=== PATIENT | male | born 1970 | race Caucasian/White ===

== ENCOUNTER 2018-06-13 08:58 | Inpatient (IN) | payer MEDICAID ==
[~2018-06-13] VITALS: Ht 177.8 cm; Wt 77.3 kg
[2018-06-13] MEDS ORDERED: ketorolac trometh. 30mg/ml inj. IV ONE (09:05)
[2018-06-13] MEDS ORDERED: normal saline 1000ML IV soln IVB ONE (09:05)
[2018-06-13 09:42] LABS: BASOPHILS # (AUTO) 0.1 X10'3 (0-0.2); BASOPHILS % (AUTO) 0.8 % (0-1); EOSINOPHILS # (AUTO) 0.1 X10'3 (0-0.9); EOSINOPHILS % (AUTO) 1.8 % (0-6); HEMATOCRIT 37.4 % (42.0-52.0); HEMOGLOBIN 11.8 g/dl (14.0-17.9); LYMPHOCYTES # (AUTO) 1.3 X10'3 (1.1-4.8); LYMPHOCYTES % (AUTO) 21.4 % (21-51); MEAN CORPUSCULAR HEMOGLOBIN 25.1 PG (27.0-31.0); MEAN CORPUSCULAR HGB CONC 31.6 g/dL (33.0-36.5); MEAN CORPUSCULAR VOLUME 79.5 FL (78-98); MEAN PLATELET VOLUME 8.1 FL (7.4-10.4); MONOCYTES # (AUTO) 0.4 X10'3 (0-0.9); MONOCYTES % (AUTO) 6.9 % (2-12); NEUTROPHILS # (AUTO) 4.4 X10'3 (1.8-7.7); NEUTROPHILS % (AUTO) 69.1 % (42-75); PLATELET COUNT 272 X10'3 (140-440); RED BLOOD COUNT 4.71 X10'6 (4.70-6.10); RED CELL DISTRIBUTION WIDTH 18.4 % (11.5-14.5); WHITE BLOOD COUNT 6.3 X10'3 (4.5-11.0)
[2018-06-13 09:51] LABS: ALANINE AMINOTRANSFERASE 32 U/L (12-78); ALBUMIN 3.5 G/DL (3.4-5.0); ALKALINE PHOSPHATASE 60 IU/L (46-116); ANION GAP 12 (8-16); ASPARTATE AMINO TRANSFERASE 28 U/L (10-37); BILIRUBIN,TOTAL 0.4 MG/DL (0.1-1.0); BLOOD UREA NITROGEN 18 MG/DL (7-18); BUN/CREATININE RATIO 17.6 (5.4-32.0); CALCIUM 8.2 MG/DL (8.5-10.1); CHLORIDE 104 MMOL/L (99-107); CREATININE 1.02 MG/DL (0.60-1.10); GLUCOSE 94 MG/DL (70-104); LIPASE 627 U/L (73-393); SODIUM 139 MMOL/L (135-145); TOTAL CARBON DIOXIDE 22.8 MMOL/L (24-32); TOTAL PROTEIN 6.9 G/DL (6.4-8.2); eGFR 78 ML/MIN
--- NOTE | 2018-06-13 12:02 | NUR ---
STILL TRYING TO REACH DR. NAYAK- HIS LINE IS "BUSY" AND STATES TO "CALL AGAIN LATER"
--- NOTE | 2018-06-13 12:17 | NUR ---
CALL PLACED TO DR. LIPSCOMB- PHONE LINE APPEARS TO BE DOWN. TRYING TO OBTAIN PERSONAL CELL PHONE NUMBERS
--- NOTE | 2018-06-13 12:20 | NUR ---
Obtained Dr. Webb's cell phone number and left message.
[2018-06-13 12:22] LABS: GLUCOSE, URINE NEGATIVE (Neg); KETONES,URINE NEGATIVE (Neg); LEUKOCYTE ESTERASE ,URINE SMALL (Neg); NITRITES, URINE NEGATIVE (Neg); OCCULT BLOOD,URINE LARGE (Neg); PH,URINE 5.5 (4.8-8.0); PROTEIN,URINE 100 mg/dl (Neg); UROBILINOGEN,URINE 0.2 E.U/dL (0.2-1.0)
--- NOTE | 2018-06-13 12:23 | NUR ---
[phone] [phone]
[2018-06-13 12:29] LABS: UA COLLECTION TYPE URINAL
[2018-06-13 12:30] LABS: CLARITY,URINE CLOUDY (Clear); COLOR,URINE AMBER (Yellow)
[2018-06-13 12:33] LABS: BACTERIA,URINE FEW /HPF (Neg); MUCUS STRANDS FEW /LPF (Neg); RBC,URINE 50-100 /HPF (0-2); SQUAMOUS EPITHELIAL CELL,UR FEW /LPF (FEW)
[2018-06-13] MEDS ORDERED: levoFLOXACIN-Levaquin 500mg/D5 100 ML IV ONE (13:00)
[2018-06-13] MEDS ORDERED: NO HOME MEDS (13:04)
[2018-06-13] MEDS ORDERED: magnesium hydroxide 30ml (MOM) UD suspension PO PRN (14:25)
[2018-06-13] MEDS ORDERED: acetaminophen 325mg tablet PO PRN (14:25)
[2018-06-13] MEDS ORDERED: mag hydrox/Alum hydrox/simeth 30ml oral suspension PO PRN (14:25)
[2018-06-13] MEDS ORDERED: magnesium Cl slow-release 64mg tablet PO PRN (14:25)
[2018-06-13] MEDS ORDERED: potassium Cl 20 mEq SR tablet PO PRN ×2 (14:25)
[2018-06-13] MEDS ORDERED: ondansetron/PF 4mg/2ml inj IV PRN (14:25)
[2018-06-13] MEDS ORDERED: magnesium 4gm in 100ml NS 100 ML IV PRN (14:25)
[2018-06-13] MEDS ORDERED: potassium Cl 40MEQ/NS 500ml 500 ML IV PRN ×2 (14:25)
[2018-06-13] MEDS ORDERED: magnesium 2GM in 50ml NS 50 ML IV PRN (14:25)
[2018-06-13] MEDS: normal saline 1000ml 1,000 ML IV SCH (14:46)
--- NOTE | 2018-06-13 17:23 | NUR ---
attempted to give report, rhiannon ochoa was busy will call back
[2018-06-13 18:06] VITALS: BP 129/80
[2018-06-13] MEDS: HYDROmorphone inj. 0.5 MG/0.5 ML DISP.SYRIN IV PRN (18:21)
[2018-06-13 19:00] VITALS: BP 127/66
[2018-06-14] VITALS: BP 134/75
[2018-06-14] MEDS: normal saline 1000ml 1,000 ML IV SCH (00:22)
[2018-06-14 06:13] LABS: ALANINE AMINOTRANSFERASE 31 U/L (12-78); ALBUMIN 3.1 G/DL (3.4-5.0); ALKALINE PHOSPHATASE 53 IU/L (46-116); ANION GAP 10 (8-16); ASPARTATE AMINO TRANSFERASE 29 U/L (10-37); BILIRUBIN,TOTAL 1.2 MG/DL (0.1-1.0); BLOOD UREA NITROGEN 14 MG/DL (7-18); BUN/CREATININE RATIO 15.4 (5.4-32.0); CHLORIDE 107 MMOL/L (99-107); CREATININE 0.91 MG/DL (0.60-1.10); GLUCOSE 96 MG/DL (70-104); MAGNESIUM 1.6 MG/DL (1.5-2.4); POTASSIUM 3.8 MMOL/L (3.5-5.1); SODIUM 139 MMOL/L (135-145); TOTAL CARBON DIOXIDE 21.6 MMOL/L (24-32); TOTAL PROTEIN 6.1 G/DL (6.4-8.2); eGFR 89 ML/MIN
[2018-06-14 06:30] LABS: BASOPHILS % (AUTO) 0.7 % (0-1); EOSINOPHILS # (AUTO) 0.1 X10'3 (0-0.9); EOSINOPHILS % (AUTO) 1.9 % (0-6); HEMATOCRIT 36.5 % (42.0-52.0); HEMOGLOBIN 11.7 g/dl (14.0-17.9); LYMPHOCYTES # (AUTO) 1.1 X10'3 (1.1-4.8); MEAN CORPUSCULAR HEMOGLOBIN 25.4 PG (27.0-31.0); MEAN CORPUSCULAR HGB CONC 32.1 g/dL (33.0-36.5); MEAN CORPUSCULAR VOLUME 79.2 FL (78-98); MEAN PLATELET VOLUME 8.6 FL (7.4-10.4); MONOCYTES # (AUTO) 0.5 X10'3 (0-0.9); MONOCYTES % (AUTO) 7.6 % (2-12); NEUTROPHILS % (AUTO) 73.8 % (42-75); PLATELET COUNT 267 X10'3 (140-440); RED BLOOD COUNT 4.61 X10'6 (4.70-6.10); RED CELL DISTRIBUTION WIDTH 18.2 % (11.5-14.5); WHITE BLOOD COUNT 6.7 X10'3 (4.5-11.0)
--- NOTE | 2018-06-14 06:47 | NUR ---
Problems reprioritized. Patient report given, questions answered & plan of care reviewed with Alexandra GABRIEL. Patient in shower.
--- NOTE | 2018-06-14 06:48 | NUR ---
Patient in room [facility]. I have received report from Debora Spain and had the opportunity to ask questions and assume patient care.
[2018-06-14 07:00] VITALS: BP 114/75
[2018-06-14] MEDS ORDERED: CefTRIAXone/D5W-Rocephin 1gm 50 ML IV SCH (08:00)
[2018-06-14] MEDS ORDERED: K and/or MAG REPLACEMENT MC SCH (08:00)
--- NOTE | 2018-06-14 12:40 | NUR ---
Pt c/o hunger and becoming agitated at NPO status. Pt stated he has an appt w/ [facility] on 06/25 but was so painful w/ bloody uo 06/13 that he came to ER. Pt is upset that urologist consult has not happened yet. Call placed to Dr. Webb who returned my call. He reviewed Creatinine level (0.91), WBC (6.7), pain level (last pain med 06/13), and urine appearance (clear pale kwesi). Dr Webb stated pt to call his office this week for f/u appt, d/t no surgery is needed at this time. Dr Lau notified. Regular diet order placed.
[2018-06-14] MEDS: HYDROmorphone inj. 0.5 MG/0.5 ML DISP.SYRIN IV PRN (12:53)
[2018-06-14] MEDS ORDERED: CEPH250T PO (14:32)
== END 2018-06-14 14:56 | disposition home or self-care (01) | DRG 463 ==
LOC: ER 08:59 → ED HOLD 14:22 → SUR 3N 17:46
PROVIDERS: ADMIT Internal Medicine; ATTEND Family Medicine
DX: N13.6 Pyonephrosis (principal); F12.90 Cannabis use, unspecified, uncomplicated; F17.210 Nicotine dependence, cigarettes, uncomplicated; R31.0 Gross hematuria; Z87.442 Personal history of urinary calculi; Z88.1 Allergy status to other antibiotic agents; Z72.89 Other problems related to lifestyle; Z71.41 Alcohol abuse counseling and surveillance of alcoholic
CPT/HCPCS: 36415; 74176; 80053; 81001; 83690; 83735; 85025; 87070; 87088; 93005; 96361; 96365; 96375; 99285; G0378; J0696; J1170; J1885; J1956; J7030

== ENCOUNTER 2019-04-28 13:51 | Emergency (ER) | payer MEDICAID ==
[~2019-04-28] VITALS: Ht 177.8 cm; Wt 75.0 kg
[~2019-04-28 13:51] MED LIST: CEPH250T PO
[2019-04-28] MEDS ORDERED: orphenadrine citrate 60mg/2ml inj. IM ONE (14:50)
[2019-04-28] MEDS ORDERED: ketorolac trometh inj. 60 MG/2 ML VIAL IM ONE (14:50)
[2019-04-28] MEDS ORDERED: CYCL-1 PO (14:52)
--- NOTE | 2019-04-28 15:38 | NUR ---
PER CUBA SALINAS: LEAVE SUTURES IN FOR LEFT KNE FOR 10 TO 14 DAYS
[2019-04-28 15:54] VITALS: BP 120/63
== END 2019-04-28 16:00 | disposition home or self-care (01) ==
LOC: ER 13:51
DX: M25.512 Pain in left shoulder (principal); M62.838 Other muscle spasm; F17.200 Nicotine dependence, unspecified, uncomplicated; Z98.890 Other specified postprocedural states; Z88.0 Allergy status to penicillin; Z88.1 Allergy status to other antibiotic agents; V49.88XA Car occupant (driver) (passenger) injured in other specified transport accidents, initial encounter; Y93.89 Activity, other specified; Y92.413 State road as the place of occurrence of the external cause; Y99.9 Unspecified external cause status
CPT/HCPCS: 96372; 99283; J1885; J2360

== ENCOUNTER 2020-04-26 15:25 | Emergency (ER) | payer MEDICAID ==
[~2020-04-26] VITALS: Ht 177.8 cm; Wt 77.3 kg
[~2020-04-26 15:25] MED LIST changes: -CEPH250T PO; +CYCL-1 PO
[2020-04-26 15:37] VITALS: BP 119/83
[2020-04-26 16:29] LABS: BASOPHILS # (AUTO) 0.1 X10'3 (0-0.2); BASOPHILS % (AUTO) 1.4 % (0-1); EOSINOPHILS # (AUTO) 0.2 X10'3 (0-0.9); EOSINOPHILS % (AUTO) 2.8 % (0-6); HEMOGLOBIN 13.2 g/dl (14.0-17.9); LYMPHOCYTES # (AUTO) 1.9 X10'3 (1.1-4.8); LYMPHOCYTES % (AUTO) 24.5 % (21-51); MEAN CORPUSCULAR HEMOGLOBIN 27.5 PG (27.0-31.0); MEAN CORPUSCULAR HGB CONC 32.2 g/dL (33.0-36.5); MEAN CORPUSCULAR VOLUME 85.3 FL (78-98); MEAN PLATELET VOLUME 8.4 FL (7.4-10.4); MONOCYTES # (AUTO) 0.4 X10'3 (0-0.9); MONOCYTES % (AUTO) 5.1 % (2-12); NEUTROPHILS # (AUTO) 5.2 X10'3 (1.8-7.7); NEUTROPHILS % (AUTO) 66.2 % (42-75); PLATELET COUNT 278 X10'3 (140-440); RED CELL DISTRIBUTION WIDTH 17.2 % (11.5-14.5); WHITE BLOOD COUNT 7.8 X10'3 (4.5-11.0)
[2020-04-26 16:40] LABS: ALANINE AMINOTRANSFERASE 38 U/L (12-78); ALBUMIN 4.2 G/DL (3.4-5.0); ALBUMIN/GLOBULIN RATIO 1.2 (1.1-1.5); ALKALINE PHOSPHATASE 66 IU/L (46-116); ANION GAP 13 (8-16); ASPARTATE AMINO TRANSFERASE 38 U/L (10-37); BILIRUBIN,TOTAL 0.5 MG/DL (0.1-1.0); BLOOD UREA NITROGEN 12 MG/DL (7-18); BUN/CREATININE RATIO 10.4 (5.4-32.0); CALCIUM 8.4 MG/DL (8.5-10.1); CHLORIDE 106 MMOL/L (99-107); CREATININE 1.15 MG/DL (0.60-1.10); GLUCOSE 104 MG/DL (70-104); POTASSIUM 3.9 MMOL/L (3.5-5.1); SODIUM 145 MMOL/L (135-145); TOTAL CARBON DIOXIDE 26.4 MMOL/L (24-32); TOTAL PROTEIN 7.7 G/DL (6.4-8.2); eGFR 67 ML/MIN
== END 2020-04-26 19:39 | disposition left against medical advice (07) ==
LOC: ER 15:25
DX: R55 Syncope and collapse (principal); Z53.21 Procedure and treatment not carried out due to patient leaving prior to being seen by health care provider
CPT/HCPCS: 36415; 71045; 80053; 82948; 83880; 84484; 85025; 93005; 99285

== ENCOUNTER 2021-05-10 12:35 | Inpatient (IN) | payer MEDICAID ==
[~2021-05-10] VITALS: Ht 177.8 cm; Wt 79.5 kg
[2021-05-10] MEDS ORDERED: famotidine/PF 10 mg/ml inj IV ONE (13:45)
[2021-05-10] MEDS ORDERED: ondansetron/PF 4mg/2ml inj IV ONE (13:45)
[2021-05-10] MEDS ORDERED: LIDOcaine Viscous 15ml cup MM ONE (13:45)
[2021-05-10] MEDS ORDERED: sucralfate 1 gm tablet PO ONE (13:45)
[2021-05-10] MEDS ORDERED: mag hydrox/Alum hydrox/simeth 30ml oral suspension PO ONE (13:45)
[2021-05-10] MEDS ORDERED: morphine 4 MG/ML inj SYRINge IV ONE (13:50)
[2021-05-10 13:51] LABS: BASOPHILS # (AUTO) 0.1 X10'3 (0-0.2); BASOPHILS % (AUTO) 0.4 % (0-1); EOSINOPHILS # (AUTO) 0.1 X10'3 (0-0.9); EOSINOPHILS % (AUTO) 0.4 % (0-6); HEMATOCRIT 36.4 % (42.0-52.0); HEMOGLOBIN 11.4 g/dl (14.0-17.9); LYMPHOCYTES % (AUTO) 6.8 % (21-51); MEAN CORPUSCULAR HEMOGLOBIN 25.6 PG (27.0-31.0); MEAN CORPUSCULAR HGB CONC 31.4 g/dL (33.0-36.5); MEAN CORPUSCULAR VOLUME 81.4 FL (78-98); MEAN PLATELET VOLUME 8.1 FL (7.4-10.4); MONOCYTES % (AUTO) 13.5 % (2-12); NEUTROPHILS # (AUTO) 11.7 X10'3 (1.8-7.7); NEUTROPHILS % (AUTO) 78.9 % (42-75); PLATELET COUNT 218 X10'3 (140-440); RED BLOOD COUNT 4.48 X10'6 (4.70-6.10); RED CELL DISTRIBUTION WIDTH 19.5 % (11.5-14.5); WHITE BLOOD COUNT 14.8 X10'3 (4.5-11.0)
[2021-05-10 14:06] LABS: ALBUMIN 2.9 G/DL (3.4-5.0); ALBUMIN/GLOBULIN RATIO 0.9 (1.1-1.5); ALKALINE PHOSPHATASE 143 IU/L (46-116); ANION GAP 13 (8-16); ASPARTATE AMINO TRANSFERASE 118 U/L (10-37); BILIRUBIN,TOTAL 1.9 MG/DL (0.1-1.0); BLOOD UREA NITROGEN 21 MG/DL (7-18); BUN/CREATININE RATIO 13.6 (5.4-32.0); CALCIUM 7.7 MG/DL (8.5-10.1); CHLORIDE 103 MMOL/L (99-107); CREATININE 1.54 MG/DL (0.60-1.10); GLUCOSE 106 MG/DL (70-104); POTASSIUM 3.4 MMOL/L (3.5-5.1); SODIUM 137 MMOL/L (135-145); TOTAL CARBON DIOXIDE 20.6 MMOL/L (24-32); TOTAL PROTEIN 6.2 G/DL (6.4-8.2); eGFR 48 ML/MIN
[2021-05-10 14:23] LABS: ALANINE AMINOTRANSFERASE 115 U/L (12-78)
[2021-05-10 14:32] LABS: ANISOCYTOSIS 2+; PLATELET ESTIMATE NORMAL
[2021-05-10 14:33] LABS: BURR CELLS FEW; ELLIPTOCYTES FEW
[2021-05-10] MEDS ORDERED: azithromycin/NS 500mg/250ml 250 ML IV ONE (14:40)
[2021-05-10] MEDS ORDERED: CefTRIAXone 2gm/D5W 50ml BAG 50 ML IV ONE (14:40)
--- NOTE | 2021-05-10 14:52 | NUR ---
NOTED PTS SPO2 TO 80% RA, PRIMARY RN AND PA AWARE, PT PLACED ON 5 L NC, SP02 TO 88%, PLACED ON NON REBREATHER, SP02 TO 92%, COVID SWAB SENT
--- NOTE | 2021-05-10 15:10 | NUR ---
PER TWO DAYS AGO HE FELL AND LOST CONCUSNESS
[2021-05-10 15:29] LABS: ETHANOL 0.051 GM/DL (0.0-0.010)
[2021-05-10] MEDS ORDERED: ipratropium/albuterol 3ml nebule NEB ONE (15:40)
[2021-05-10] MEDS ORDERED: methylPREDNISolone sod succ 125mg/2ml vial IV ONE (15:40)
[2021-05-10 15:44] LABS: ABG BASE EXCESS -7.3 mmol/L (-2.0-2.0); ABG HCO3 15.1 mmol/L (22.0-26.0); ABG OXYGEN SATURATION 89.6 % (94-97); ABG PCO2 (T) 23.2 mmHg (35.0-48.0); ABG PO2 (T) 59.6 mmHg (75.0-100.0); ALLEN'S TEST POSITIVE; FCOHb 1.4 % (0.0-3.9); FMetHb 0.2 % (0.0-1.5); FO2Hb 88.2 % (94-97); TOTAL HEMOGLOBIN 12.7 G/dl (14.0-18.0)
--- NOTE | 2021-05-10 16:20 | NUR ---
breaking primary nurse at this time .paged rt and rt is here for breathing tx. at bedside ,provided the chair to the .
[2021-05-10] MEDS ORDERED: magnesium Cl slow-release 64mg tablet PO PRN (18:00)
[2021-05-10] MEDS ORDERED: acetaminophen 325mg tablet PO PRN ×2 (18:00)
[2021-05-10] MEDS ORDERED: PERFLUTREN PROTEIN-A MICROSPHR (Optison) 0.22 MG/ML 3ML VIAL IV ONE (18:00)
[2021-05-10] MEDS ORDERED: HYDROcodone/acetaminophen 5mg/325mg tablet PO PRN (18:00)
[2021-05-10] MEDS ORDERED: magnesium 4gm in 100ml NS 100 ML IV PRN (18:00)
[2021-05-10] MEDS ORDERED: magnesium 2GM in 50ml NS 50 ML IV PRN (18:00)
[2021-05-10] MEDS ORDERED: ondansetron/PF 4mg/2ml inj IV PRN (18:00)
[2021-05-10] MEDS ORDERED: potassium Cl 20 mEq SR tablet PO PRN ×2 (18:00)
[2021-05-10] MEDS ORDERED: potassium CL 10mEq/100ml bag 100 ML IV PRN (18:00)
[2021-05-10] MEDS ORDERED: morphine 2 MG/ML inj. syringe IV PRN (18:00)
[2021-05-10] MEDS ORDERED: metoprolol tartrate 1mg/ml inj IV PRN (18:10)
[2021-05-10] MEDS ORDERED: nitroGLYCERIN 0.4mg SUBLingual tab SL PRN (18:10)
[2021-05-10] MEDS ORDERED: regadenoson 0.4mg/5ml syringe IV ONE (18:10)
[2021-05-10] MEDS ORDERED: aminophylline 250mg/10ml inj. IV PRN (18:10)
[2021-05-10] MEDS ORDERED: normal saline 1000ml 1,000 ML IV ONE (18:15)
[2021-05-10] MEDS: normal saline 1000ml 1,000 ML IV SCH (18:18)
[2021-05-10] MEDS ORDERED: OMEP-50 PO (18:19)
[2021-05-10] MEDS ORDERED: HYDR12.55 PO (18:19)
[2021-05-10] MEDS ORDERED: ASPI-1265 PO (18:19)
[2021-05-10] MEDS ORDERED: LORazepam 2 mg/ml vial IV PRN (18:40)
[2021-05-10 19:02] LABS: D-DIMER 1.41 MG/L FEU (0-0.50)
[2021-05-10] MEDS: thiamine 100mg tablet PO SCH (19:34)
[2021-05-10] MEDS: multivitamins, therapeutics tablet PO SCH (19:35)
[2021-05-10] MEDS: pantoprazole 40mg Tablet.DR PO SCH (19:35)
[2021-05-10] MEDS: folic acid 1mg tablet PO SCH (19:35)
[2021-05-10] MEDS: K and/or MAG REPLACEMENT MC SCH (20:00)
[2021-05-10 20:08] LABS: MAGNESIUM 1.8 MG/DL (1.5-2.4); POTASSIUM 5.1 MMOL/L (3.5-5.1)
[2021-05-10 23:54] VITALS: BP 98/77
[2021-05-11] VITALS (15 sets, daily range): BP systolic 101–127; BP diastolic 56–89
[2021-05-11 03:30] LABS: BASOPHILS % (AUTO) 0.1 % (0-1); EOSINOPHILS % (AUTO) 0 % (0-6); HEMATOCRIT 38.1 % (42.0-52.0); LYMPHOCYTES # (AUTO) 0.5 X10'3 (1.1-4.8); LYMPHOCYTES % (AUTO) 3.1 % (21-51); MEAN CORPUSCULAR HEMOGLOBIN 25.6 PG (27.0-31.0); MEAN CORPUSCULAR HGB CONC 31.5 g/dL (33.0-36.5); MEAN CORPUSCULAR VOLUME 81.3 FL (78-98); MEAN PLATELET VOLUME 9.2 FL (7.4-10.4); MONOCYTES # (AUTO) 0.5 X10'3 (0-0.9); MONOCYTES % (AUTO) 3.6 % (2-12); NEUTROPHILS # (AUTO) 13.7 X10'3 (1.8-7.7); NEUTROPHILS % (AUTO) 93.2 % (42-75); PLATELET COUNT 221 X10'3 (140-440); RED BLOOD COUNT 4.68 X10'6 (4.70-6.10); RED CELL DISTRIBUTION WIDTH 19.6 % (11.5-14.5); WHITE BLOOD COUNT 14.7 X10'3 (4.5-11.0)
[2021-05-11 03:53] LABS: ALBUMIN 2.7 G/DL (3.4-5.0); ALBUMIN/GLOBULIN RATIO 0.8 (1.1-1.5); ALKALINE PHOSPHATASE 179 IU/L (46-116); ANION GAP 14 (8-16); BILIRUBIN,TOTAL 1.8 MG/DL (0.1-1.0); BLOOD UREA NITROGEN 28 MG/DL (7-18); BUN/CREATININE RATIO 16.4 (5.4-32.0); CALCIUM 7.5 MG/DL (8.5-10.1); CHLORIDE 103 MMOL/L (99-107); CHOLESTEROL 93 MG/DL (0-200); CREATININE 1.71 MG/DL (0.60-1.10); GLUCOSE 176 MG/DL (70-104); HDL CHOLESTEROL 46 MG/DL (35-60); LDL CHOLESTEROL 30 MG/DL (50-100); LIPASE < 50 U/L (73-393); MAGNESIUM 1.9 MG/DL (1.5-2.4); PHOSPHORUS 3.8 MG/DL (2.3-4.5); POTASSIUM 4.3 MMOL/L (3.5-5.1); SODIUM 138 MMOL/L (135-145); TOTAL CARBON DIOXIDE 21.4 MMOL/L (24-32); TOTAL PROTEIN 6.1 G/DL (6.4-8.2); TRIGLYCERIDES 51 MG/DL (20-135); eGFR 42 ML/MIN
[2021-05-11 03:54] LABS: ALANINE AMINOTRANSFERASE 1137 U/L (12-78)
[2021-05-11 04:11] LABS: ASPARTATE AMINO TRANSFERASE 2447 U/L (10-37)
[2021-05-11 05:03] LABS: ELLIPTOCYTES FEW; PLATELET ESTIMATE NORMAL; POLYCHROMASIA FEW
[2021-05-11 05:04] LABS: BURR CELLS 1+
[2021-05-11] MEDS ORDERED: CefTRIAXone 2gm/D5W 50ml BAG 50 ML IV SCH (08:00)
[2021-05-11] MEDS ORDERED: regadenoson 0.4mg/5ml syringe IV ONE (09:45)
[2021-05-11] MEDS: thiamine 100mg tablet PO SCH (12:43)
[2021-05-11] MEDS: folic acid 1mg tablet PO SCH (12:43)
[2021-05-11] MEDS: nicotine 14mg patch - 24hr TD SCH (12:43)
[2021-05-11] MEDS: multivitamins, therapeutics tablet PO SCH (12:43)
[2021-05-11] MEDS: aspirin 81mg tab.chew PO SCH (12:43)
[2021-05-11] MEDS: normal saline 1000ml 1,000 ML IV SCH (12:44)
[2021-05-11] MEDS: pantoprazole 40mg Tablet.DR PO SCH (12:50)
[2021-05-11] MEDS: K and/or MAG REPLACEMENT MC SCH ×2 (12:50→19:08)
[2021-05-11] MEDS ORDERED: metroNIDAZOLE-Flagyl 500mg/NS 100 ML IV SCH (12:54)
[2021-05-11] MEDS ORDERED: normal saline 1000ml 1,000 ML IV ONE (12:55)
[2021-05-11 14:16] LABS: CHOL/HDL RATIO 1.8 (0.00-4.99); CHOLESTEROL 86 MG/DL (0-200); HDL CHOLESTEROL 47 MG/DL (35-60); LDL CHOLESTEROL 26 MG/DL (50-100); TRIGLYCERIDES 41 MG/DL (20-135)
[2021-05-11 14:40] LABS: HIV ANTIBODY 1&2 RAPID NON-REACTIVE (Neg)
[2021-05-11] MEDS: dextrose 5%-normal saline 1,000 ML IV SCH (15:31)
[2021-05-11] MEDS ORDERED: vancomycin/NS 1 GM ADD-VANTAGE 250 ML IV SCH (17:00)
[2021-05-11 17:11] LABS: URINE AMPHETAMINE SCREEN POSITIVE (Neg); URINE BARBITUATE SCREEN NEGATIVE (Neg); URINE BENZODIAZEPINES SCREEN NEGATIVE (Neg); URINE CANNABINOID SCREEN POSITIVE (Neg); URINE COCAINE SCREEN NEGATIVE (Neg); URINE METHADONE SCREEN NEGATIVE (Neg); URINE OPIATE SCREEN POSITIVE (Neg); URINE PHENCYCLIDINE SCREEN NEGATIVE (Neg)
[2021-05-11 17:28] LABS: CLARITY,URINE CLEAR (Clear); COLOR,URINE YELLOW (Yellow); GLUCOSE, URINE NEGATIVE (Neg); KETONES,URINE NEGATIVE (Neg); LEUKOCYTE ESTERASE ,URINE NEGATIVE (Neg); NITRITES, URINE NEGATIVE (Neg); OCCULT BLOOD,URINE NEGATIVE (Neg); PH,URINE 5.5 (4.8-8.0); PROTEIN,URINE TRACE mg/dl (Neg)
[2021-05-11 17:40] LABS: UA COLLECTION TYPE URINAL
[2021-05-11 17:41] LABS: BACTERIA,URINE NONE SEEN /HPF (Neg); RBC,URINE NONE SEEN /HPF (0-2); SQUAMOUS EPITHELIAL CELL,UR FEW /LPF (FEW); WBC,URINE 0-4 /HPF (0-4)
[2021-05-11] MEDS: piperacillin/tazo 3.375gm/50ml 50 ML IV SCH (19:33)
[2021-05-11] MEDS: lactobacillus rhamnosus 10,000 MMU CELLS/CAPSULE PO SCH (19:35)
[2021-05-12] MEDS: LORazepam 1 MG tablet PO PRN ×2 (01:14→22:40)
[2021-05-12] MEDS: dextrose 5%-normal saline 1,000 ML IV SCH ×4 (01:14→22:01)
[2021-05-12 02:00] VITALS: BP 134/96
[2021-05-12 06:00] VITALS: BP 131/96
[2021-05-12] MEDS: piperacillin/tazo 3.375gm/50ml 50 ML IV SCH ×3 (07:23→15:39)
[2021-05-12] MEDS: pantoprazole 40mg Tablet.DR PO SCH (07:23)
[2021-05-12 07:29] LABS: BASOPHILS % (AUTO) 0.1 % (0-1); EOSINOPHILS % (AUTO) 0 % (0-6); HEMATOCRIT 35.5 % (42.0-52.0); LYMPHOCYTES # (AUTO) 0.8 X10'3 (1.1-4.8); LYMPHOCYTES % (AUTO) 4.1 % (21-51); MEAN CORPUSCULAR HEMOGLOBIN 25.3 PG (27.0-31.0); MEAN CORPUSCULAR HGB CONC 30.9 g/dL (33.0-36.5); MEAN CORPUSCULAR VOLUME 81.9 FL (78-98); MONOCYTES # (AUTO) 1.1 X10'3 (0-0.9); MONOCYTES % (AUTO) 5.6 % (2-12); NEUTROPHILS # (AUTO) 17.6 X10'3 (1.8-7.7); NEUTROPHILS % (AUTO) 90.2 % (42-75); PLATELET COUNT 247 X10'3 (140-440); RED BLOOD COUNT 4.34 X10'6 (4.70-6.10); RED CELL DISTRIBUTION WIDTH 19.1 % (11.5-14.5); WHITE BLOOD COUNT 19.5 X10'3 (4.5-11.0)
[2021-05-12 07:36] LABS: ALBUMIN 2.5 G/DL (3.4-5.0); ALBUMIN/GLOBULIN RATIO 0.7 (1.1-1.5); ALKALINE PHOSPHATASE 154 IU/L (46-116); ANION GAP 11 (8-16); ASPARTATE AMINO TRANSFERASE 922 U/L (10-37); BILIRUBIN,TOTAL 1.1 MG/DL (0.1-1.0); BLOOD UREA NITROGEN 29 MG/DL (7-18); BUN/CREATININE RATIO 21.5 (5.4-32.0); CALCIUM 7.5 MG/DL (8.5-10.1); CHLORIDE 108 MMOL/L (99-107); CREATININE 1.35 MG/DL (0.60-1.10); GLUCOSE 162 MG/DL (70-104); LIPASE < 50 U/L (73-393); PHOSPHORUS 2.8 MG/DL (2.3-4.5); POTASSIUM 4.8 MMOL/L (3.5-5.1); SODIUM 140 MMOL/L (135-145); TOTAL CARBON DIOXIDE 21.1 MMOL/L (24-32); TOTAL PROTEIN 6.1 G/DL (6.4-8.2); eGFR 56 ML/MIN
[2021-05-12 07:51] LABS: ALANINE AMINOTRANSFERASE 1035 U/L (12-78)
[2021-05-12] MEDS: K and/or MAG REPLACEMENT MC SCH ×2 (08:00→19:36)
[2021-05-12] MEDS: multivitamins, therapeutics tablet PO SCH (08:58)
[2021-05-12] MEDS: folic acid 1mg tablet PO SCH (08:58)
[2021-05-12] MEDS: aspirin 81mg tab.chew PO SCH (08:58)
[2021-05-12] MEDS: nicotine 14mg patch - 24hr TD SCH (08:58)
[2021-05-12] MEDS: thiamine 100mg tablet PO SCH (08:58)
[2021-05-12] MEDS: lactobacillus rhamnosus 10,000 MMU CELLS/CAPSULE PO SCH ×2 (08:58→19:13)
[2021-05-12] MEDS ORDERED: iohexol 350MG/ML 100ml bottle IV ONE (10:47)
[2021-05-12 11:00] VITALS: BP 116/95
[2021-05-12] MEDS: vancomycin/NS 1 GM ADD-VANTAGE 250 ML IV SCH ×2 (12:08→22:42)
--- NOTE | 2021-05-12 14:57 | NUR ---
Noted pt with A1c 7.0% though no PMH DM per EMR. TC to RN to inform that RD unable to provide DM education until pt has been provided with DM dx from physician, RN unavailable, message left with charge nurse. Pt admit for abnormal liver enzymes, EtOH, PNA, and CKD. CT shows cholecystitis per MD note. EtOH, opiates, amphetamines, and cannabinoids positive on tox screen. Pt receiving routine Thiamine, Folic acid, and MVI. Currently eating well with 100% PO intake on clear liquid diet though not meeting estimated nutrient needs given the nature of current diet order. Recommend advancing to CHO controlled diet as medically indicated. Noted pt receiving D5NS at 125 mL/hr providing 510 kcal/day. LBM 05/10. Will continue to follow closely and make recommendations as appropriate. Recommendations: 1) Advance to CHO controlled diet as medically indicated 2) Continue routine Thiamine, Folic acid, and MVI for EtOH hx 3) Bowel care PRN 4) Scaled weight this admit; weekly scaled weights thereafter 5) DM education following official dx by physician; A1c 7.0% with no PMH DM Addendum: 05/12/21 at [address] Amended: Links added.
[2021-05-12 15:00] VITALS: BP 125/98
[2021-05-12 18:00] VITALS: BP 122/95
[2021-05-12 22:00] VITALS: BP 129/91
[2021-05-12] MEDS ORDERED: furosemide 40mg/4ml inj IV ONE (22:00)
[2021-05-13] MEDS: piperacillin/tazo 3.375gm/50ml 50 ML IV SCH ×3 (00:08→16:36)
[2021-05-13 02:00] VITALS: BP 124/90
[2021-05-13] MEDS: dextrose 5%-normal saline 1,000 ML IV SCH (05:09)
--- NOTE | 2021-05-13 06:20 | NUR ---
Patient in room PCU 3024. I have received report from Dilia RN and had the opportunity to ask questions and assume patient care.
[2021-05-13 07:19] LABS: BASOPHILS % (AUTO) 0 % (0-1); EOSINOPHILS % (AUTO) 0.2 % (0-6); HEMATOCRIT 35.7 % (42.0-52.0); HEMOGLOBIN 11.3 g/dl (14.0-17.9); LYMPHOCYTES # (AUTO) 1.5 X10'3 (1.1-4.8); LYMPHOCYTES % (AUTO) 10.5 % (21-51); MEAN CORPUSCULAR HEMOGLOBIN 25.7 PG (27.0-31.0); MEAN CORPUSCULAR HGB CONC 31.6 g/dL (33.0-36.5); MEAN CORPUSCULAR VOLUME 81.2 FL (78-98); MEAN PLATELET VOLUME 8.3 FL (7.4-10.4); MONOCYTES # (AUTO) 1.4 X10'3 (0-0.9); MONOCYTES % (AUTO) 9.5 % (2-12); NEUTROPHILS # (AUTO) 11.5 X10'3 (1.8-7.7); NEUTROPHILS % (AUTO) 79.8 % (42-75); PLATELET COUNT 272 X10'3 (140-440); RED BLOOD COUNT 4.39 X10'6 (4.70-6.10); RED CELL DISTRIBUTION WIDTH 19.5 % (11.5-14.5); WHITE BLOOD COUNT 14.4 X10'3 (4.5-11.0)
[2021-05-13 07:28] LABS: ALANINE AMINOTRANSFERASE 876 U/L (12-78); ALBUMIN 2.4 G/DL (3.4-5.0); ALBUMIN/GLOBULIN RATIO 0.7 (1.1-1.5); ALKALINE PHOSPHATASE 181 IU/L (46-116); ANION GAP 10 (8-16); ASPARTATE AMINO TRANSFERASE 526 U/L (10-37); BLOOD UREA NITROGEN 25 MG/DL (7-18); BUN/CREATININE RATIO 17.7 (5.4-32.0); CALCIUM 7.4 MG/DL (8.5-10.1); CHLORIDE 106 MMOL/L (99-107); CREATININE 1.41 MG/DL (0.60-1.10); GLUCOSE 109 MG/DL (70-104); LIPASE 73 U/L (73-393); MAGNESIUM 1.8 MG/DL (1.5-2.4); PHOSPHORUS 2.6 MG/DL (2.3-4.5); POTASSIUM 3.8 MMOL/L (3.5-5.1); SODIUM 142 MMOL/L (135-145); TOTAL CARBON DIOXIDE 26.3 MMOL/L (24-32); TOTAL PROTEIN 5.7 G/DL (6.4-8.2); eGFR 53 ML/MIN
[2021-05-13] MEDS: nicotine 14mg patch - 24hr TD SCH (08:00)
[2021-05-13] MEDS: K and/or MAG REPLACEMENT MC SCH ×2 (08:00→19:27)
[2021-05-13 08:43] LABS: ANISOCYTOSIS 2+; MICROCYTOSIS 1+; PLATELET ESTIMATE NORMAL; POLYCHROMASIA FEW
[2021-05-13] MEDS: thiamine 100mg tablet PO SCH (09:08)
[2021-05-13] MEDS: multivitamins, therapeutics tablet PO SCH (09:08)
[2021-05-13] MEDS: aspirin 81mg tab.chew PO SCH (09:08)
[2021-05-13] MEDS: lactobacillus rhamnosus 10,000 MMU CELLS/CAPSULE PO SCH ×2 (09:08→19:35)
[2021-05-13] MEDS: pantoprazole 40mg Tablet.DR PO SCH (09:08)
[2021-05-13] MEDS: folic acid 1mg tablet PO SCH (09:08)
[2021-05-13] MEDS: furosemide 40mg/4ml inj IV SCH ×2 (09:09→19:36)
[2021-05-13] MEDS ORDERED: VANCOMYCIN LEVEL IV ONE (10:30)
[2021-05-13] MEDS: vancomycin/NS 1 GM ADD-VANTAGE 250 ML IV SCH (12:33)
[2021-05-13 13:43] LABS: HBSAG SCREEN Negative (Negative); HEP A AB, IGM Negative (Negative); HEPATITIS C ANTIBODY <0.1 s/co ratio (0.0-0.9)
[2021-05-13 15:00] VITALS: BP 127/95
[2021-05-13] MEDS ORDERED: sincalide inj 1.6 MCG in normal saline 50ml IV soln 50 ML IV PRN (15:15)
[2021-05-13] MEDS ORDERED: sincalide inj 1.6 MCG in normal saline 100ml IV soln 100 ML IV PRN (15:19)
[2021-05-13 18:00] VITALS: BP 138/91
--- NOTE | 2021-05-13 18:40 | NUR ---
Problems reprioritized. Patient report given, questions answered & plan of care reviewed with Yoselin GABRIEL.
[2021-05-13 22:00] VITALS: BP 139/85
[2021-05-13] MEDS: VANCOmycin 1250MG/NS 250ml Bag 250 ML IV SCH (23:02)
[2021-05-14] MEDS: piperacillin/tazo 3.375gm/50ml 50 ML IV SCH ×4 (01:03→23:19)
[2021-05-14 02:00] VITALS: BP 140/82
--- NOTE | 2021-05-14 06:24 | NUR ---
Problems reprioritized. Patient report given, questions answered & plan of care reviewed with HARVEY Barkley.
--- NOTE | 2021-05-14 06:33 | NUR ---
Patient in room PCU 3024. I have received report from Yoselin and had the opportunity to ask questions and assume patient care.
[2021-05-14 06:37] LABS: BASOPHILS % (AUTO) 0.2 % (0-1); EOSINOPHILS # (AUTO) 0.1 X10'3 (0-0.9); EOSINOPHILS % (AUTO) 0.9 % (0-6); HEMATOCRIT 39.7 % (42.0-52.0); HEMOGLOBIN 12.6 g/dl (14.0-17.9); LYMPHOCYTES # (AUTO) 1.4 X10'3 (1.1-4.8); LYMPHOCYTES % (AUTO) 10.8 % (21-51); MEAN CORPUSCULAR HEMOGLOBIN 25.6 PG (27.0-31.0); MEAN CORPUSCULAR HGB CONC 31.8 g/dL (33.0-36.5); MEAN CORPUSCULAR VOLUME 80.5 FL (78-98); MEAN PLATELET VOLUME 8.5 FL (7.4-10.4); MONOCYTES # (AUTO) 1.4 X10'3 (0-0.9); MONOCYTES % (AUTO) 10.4 % (2-12); NEUTROPHILS # (AUTO) 10.2 X10'3 (1.8-7.7); NEUTROPHILS % (AUTO) 77.7 % (42-75); PLATELET COUNT 302 X10'3 (140-440); RED BLOOD COUNT 4.93 X10'6 (4.70-6.10); RED CELL DISTRIBUTION WIDTH 19.3 % (11.5-14.5); WHITE BLOOD COUNT 13.1 X10'3 (4.5-11.0)
[2021-05-14 06:59] LABS: ALANINE AMINOTRANSFERASE 806 U/L (12-78); ALBUMIN 2.7 G/DL (3.4-5.0); ALBUMIN/GLOBULIN RATIO 0.7 (1.1-1.5); ALKALINE PHOSPHATASE 201 IU/L (46-116); ANION GAP 8 (8-16); ASPARTATE AMINO TRANSFERASE 365 U/L (10-37); BILIRUBIN,TOTAL 1.5 MG/DL (0.1-1.0); BLOOD UREA NITROGEN 26 MG/DL (7-18); CALCIUM 8.2 MG/DL (8.5-10.1); CHLORIDE 103 MMOL/L (99-107); CREATININE 1.62 MG/DL (0.60-1.10); GLUCOSE 97 MG/DL (70-104); MAGNESIUM 1.6 MG/DL (1.5-2.4); PHOSPHORUS 3.7 MG/DL (2.3-4.5); POTASSIUM 3.7 MMOL/L (3.5-5.1); SODIUM 141 MMOL/L (135-145); TOTAL CARBON DIOXIDE 30.1 MMOL/L (24-32); TOTAL PROTEIN 6.5 G/DL (6.4-8.2); eGFR 45 ML/MIN
[2021-05-14 07:00] VITALS: BP 121/87
[2021-05-14 07:20] LABS: ANISOCYTOSIS 2+; MICROCYTOSIS 1+; PLATELET ESTIMATE NORMAL; POLYCHROMASIA FEW; TARGET CELLS FEW
[2021-05-14] MEDS: pantoprazole 40mg Tablet.DR PO SCH (07:30)
[2021-05-14] MEDS: nicotine 14mg patch - 24hr TD SCH ×2 (08:00→09:00)
[2021-05-14] MEDS: K and/or MAG REPLACEMENT MC SCH ×2 (08:00→20:00)
[2021-05-14] MEDS: furosemide 40mg/4ml inj IV SCH (08:59)
[2021-05-14] MEDS: lactobacillus rhamnosus 10,000 MMU CELLS/CAPSULE PO SCH ×2 (09:00→19:35)
[2021-05-14] MEDS: folic acid 1mg tablet PO SCH (09:00)
[2021-05-14] MEDS: thiamine 100mg tablet PO SCH (09:00)
[2021-05-14] MEDS: aspirin 81mg tab.chew PO SCH (09:00)
[2021-05-14] MEDS: multivitamins, therapeutics tablet PO SCH (09:00)
[2021-05-14 11:00] VITALS: BP 134/84
--- NOTE | 2021-05-14 13:16 | NUR ---
Dr. Lau made aware of patient's request to eat post HIDA scan and states it's ok to give patient food.
[2021-05-14] MEDS: VANCOmycin 1250MG/NS 250ml Bag 250 ML IV SCH (13:18)
[2021-05-14 15:00] VITALS: BP 118/81
[2021-05-14 18:00] VITALS: BP 131/91
[2021-05-14] MEDS: furosemide 20MG tablet PO SCH (19:35)
[2021-05-14 22:00] VITALS: BP 111/80
[2021-05-14] MEDS ORDERED: temazepam 15mg capsule PO ONE (22:25)
[2021-05-15 02:00] VITALS: BP 135/95
[2021-05-15 06:00] VITALS: BP 126/93
--- NOTE | 2021-05-15 06:17 | NUR ---
Problems reprioritized. Patient report given, questions answered & plan of care reviewed with Sandrita GABRIEL.
[2021-05-15 06:38] LABS: BASOPHILS % (AUTO) 0.2 % (0-1); EOSINOPHILS # (AUTO) 0.1 X10'3 (0-0.9); EOSINOPHILS % (AUTO) 1.1 % (0-6); HEMATOCRIT 40.4 % (42.0-52.0); HEMOGLOBIN 12.8 g/dl (14.0-17.9); LYMPHOCYTES # (AUTO) 1.3 X10'3 (1.1-4.8); LYMPHOCYTES % (AUTO) 10.3 % (21-51); MEAN CORPUSCULAR HEMOGLOBIN 25.5 PG (27.0-31.0); MEAN CORPUSCULAR HGB CONC 31.7 g/dL (33.0-36.5); MEAN CORPUSCULAR VOLUME 80.4 FL (78-98); MEAN PLATELET VOLUME 8.8 FL (7.4-10.4); MONOCYTES # (AUTO) 1.3 X10'3 (0-0.9); MONOCYTES % (AUTO) 10.5 % (2-12); NEUTROPHILS # (AUTO) 9.8 X10'3 (1.8-7.7); NEUTROPHILS % (AUTO) 77.9 % (42-75); PLATELET COUNT 326 X10'3 (140-440); RED BLOOD COUNT 5.02 X10'6 (4.70-6.10); RED CELL DISTRIBUTION WIDTH 19.1 % (11.5-14.5); WHITE BLOOD COUNT 12.5 X10'3 (4.5-11.0)
--- NOTE | 2021-05-15 06:39 | NUR ---
Patient in room PCU 3024. I have received report from Yoselin GABRIEL and had the opportunity to ask questions and assume patient care.
[2021-05-15 07:02] LABS: ALANINE AMINOTRANSFERASE 587 U/L (12-78); ALBUMIN 2.6 G/DL (3.4-5.0); ALBUMIN/GLOBULIN RATIO 0.7 (1.1-1.5); ALKALINE PHOSPHATASE 177 IU/L (46-116); ANION GAP 8 (8-16); ASPARTATE AMINO TRANSFERASE 215 U/L (10-37); BILIRUBIN,TOTAL 1.6 MG/DL (0.1-1.0); BLOOD UREA NITROGEN 28 MG/DL (7-18); BUN/CREATININE RATIO 18.5 (5.4-32.0); CALCIUM 8.4 MG/DL (8.5-10.1); CHLORIDE 103 MMOL/L (99-107); CREATININE 1.51 MG/DL (0.60-1.10); GLUCOSE 103 MG/DL (70-104); MAGNESIUM 1.5 MG/DL (1.5-2.4); PHOSPHORUS 4.7 MG/DL (2.3-4.5); POTASSIUM 3.7 MMOL/L (3.5-5.1); SODIUM 140 MMOL/L (135-145); TOTAL CARBON DIOXIDE 29.1 MMOL/L (24-32); TOTAL PROTEIN 6.3 G/DL (6.4-8.2); eGFR 49 ML/MIN
[2021-05-15 07:39] LABS: ANISOCYTOSIS 2+; LARGE PLATELETS FEW; MICROCYTOSIS 1+; PLATELET ESTIMATE NORMAL
[2021-05-15] MEDS: folic acid 1mg tablet PO SCH (07:39)
[2021-05-15] MEDS: aspirin 81mg tab.chew PO SCH (07:39)
[2021-05-15] MEDS: piperacillin/tazo 3.375gm/50ml 50 ML IV SCH (07:39)
[2021-05-15] MEDS: pantoprazole 40mg Tablet.DR PO SCH (07:39)
[2021-05-15] MEDS: thiamine 100mg tablet PO SCH (07:39)
[2021-05-15] MEDS: multivitamins, therapeutics tablet PO SCH (07:39)
[2021-05-15] MEDS: furosemide 20MG tablet PO SCH (07:39)
[2021-05-15] MEDS: lactobacillus rhamnosus 10,000 MMU CELLS/CAPSULE PO SCH (07:39)
[2021-05-15] MEDS: nicotine 14mg patch - 24hr TD SCH (07:45)
[2021-05-15] MEDS: K and/or MAG REPLACEMENT MC SCH (08:00)
[2021-05-15 11:00] VITALS: BP 120/82
[2021-05-15] MEDS ORDERED: VANCOMYCIN LEVEL IV ONE (11:30)
--- NOTE | 2021-05-15 12:20 | NUR ---
Met with patient in regards to substance/alcohol use to see if patient was interested in resources for treatment and patient declined.
[2021-05-15] MEDS ORDERED: THIA50TA10 PO (12:57)
[2021-05-15] MEDS ORDERED: FURO20TA4 PO (12:57)
[2021-05-15] MEDS ORDERED: LACT1CAP26 PO (12:57)
[2021-05-15] MEDS ORDERED: FOLI0.4T6 PO (12:57)
[2021-05-15] MEDS ORDERED: MULT-25 PO (12:57)
[2021-05-15] MEDS ORDERED: CEFD300C3 PO (12:57)
[2021-05-15] MEDS ORDERED: ALBU8.5H17 INH (12:57)
[2021-05-15] MEDS ORDERED: NITR0.4T51 SL (12:57)
[2021-05-15] MEDS ORDERED: AZIT500T9 PO (12:57)
--- NOTE | 2021-05-15 13:33 | NUR ---
home instructions were given and explained to patient and patient's prior to discharge. iv access discontinued with cannula tip complete and intact.
[2021-05-15] MEDS ORDERED: AMA1T PO (17:49)
[2021-05-15] MEDS ORDERED: LINA5TAB4 PO (17:49)
== END 2021-05-15 13:37 | disposition home or self-care (01) | DRG 720 ==
LOC: ER 12:35 → ED HOLD 18:07 → PCU 3S 23:15
PROVIDERS: ADMIT Internal Medicine; ATTEND Family Medicine
PROC: 4A02XM4 Measurement of Cardiac Total Activity, External Approach (ICD-10-PCS; principal; 2021-05-11)
PROC: 3E073KZ Introduction of Other Diagnostic Substance into Coronary Artery, Percutaneous Approach (ICD-10-PCS; 2021-05-11)
PROC: B32T1ZZ Computerized Tomography (CT Scan) of Left Pulmonary Artery using Low Osmolar Contrast (ICD-10-PCS; 2021-05-12)
PROC: B3201ZZ Computerized Tomography (CT Scan) of Thoracic Aorta using Low Osmolar Contrast (ICD-10-PCS; 2021-05-12)
PROC: B32S1ZZ Computerized Tomography (CT Scan) of Right Pulmonary Artery using Low Osmolar Contrast (ICD-10-PCS; 2021-05-12)
PROC: CF1C1ZZ Planar Nuclear Medicine Imaging of Hepatobiliary System, All using Technetium 99m (Tc-99m) (ICD-10-PCS; 2021-05-14)
DX: A41.9 Sepsis, unspecified organism (principal); J96.01 Acute respiratory failure with hypoxia; N17.0 Acute kidney failure with tubular necrosis; I27.29 Other secondary pulmonary hypertension; I13.0 Hypertensive heart and chronic kidney disease with heart failure and stage 1 through stage 4 chronic kidney disease, or unspecified chronic kidney disease; J18.9 Pneumonia, unspecified organism; I42.6 Alcoholic cardiomyopathy; I50.810 Right heart failure, unspecified; I27.81 Cor pulmonale (chronic); Z66 Do not resuscitate; F10.129 Alcohol abuse with intoxication, unspecified; Z20.822 Contact with and (suspected) exposure to COVID-19; E11.22 Type 2 diabetes mellitus with diabetic chronic kidney disease; E86.0 Dehydration; F12.90 Cannabis use, unspecified, uncomplicated; F15.10 Other stimulant abuse, uncomplicated; F17.210 Nicotine dependence, cigarettes, uncomplicated; R74.8 Abnormal levels of other serum enzymes; N18.30 Chronic kidney disease, stage 3 unspecified; Z88.0 Allergy status to penicillin; Z91.19 Patient's noncompliance with other medical treatment and regimen; Z88.1 Allergy status to other antibiotic agents; Z71.41 Alcohol abuse counseling and surveillance of alcoholic; Z71.6 Tobacco abuse counseling; Z71.51 Drug abuse counseling and surveillance of drug abuser
CPT/HCPCS: 36415; 36600; 70450; 71045; 71275; 74176; 74181; 76700; 78227; 78452; 80053; 80061; 80202; 80305; 80320; 81001; 82803; 83036; 83605; 83690; 83735; 83880; 84100; 84132; 84145; 84443; 84484; 85008; 85018; 85025; 85379; 86703; 86705; 86706; 86709; 86803; 87040; 87081; 87340; 87635; 93005; 93017; 93306; 94640; 96365; 96368; 96375; 97116; 97161; 97530; 99291; A9500; A9537; C9803; G0378; J0456; J0696; J1940; J2270; J2405; J2543; J2785; J2930; J3370; J3490; J7030; J7042; Q9967

== ENCOUNTER 2024-02-11 15:21 | Emergency (ER) | payer MEDICAID ==
[~2024-02-11] VITALS: Ht 177.8 cm; Wt 77.0 kg
[~2024-02-11 15:21] MED LIST changes: +ALBU8.5H17 INH; +ASPI-1265 PO; +AZIT500T9 PO; -CYCL-1 PO; +FURO20TA4 PO; +LACT1CAP26 PO; +LINA5TAB4 PO; +MULT-25 PO; +NITR0.4T51 SL; +OMEP20CA16 PO; +THIA50TA10 PO
[2024-02-11 15:27] VITALS: BP 141/104; PULSE 96; RESP 16; TEMP 97.7; O2SAT 96
[2024-02-11 16:03] LABS: BASOPHILS # (AUTO) 0.1 X10'3 (0-0.2); BASOPHILS % (AUTO) 0.7 % (0-1); EOSINOPHILS # (AUTO) 0.1 X10'3 (0-0.9); EOSINOPHILS % (AUTO) 1.3 % (0-6); HEMATOCRIT 43.5 % (42.0-52.0); HEMOGLOBIN 13.7 g/dl (14.0-17.9); LYMPHOCYTES # (AUTO) 1.1 X10'3 (1.1-4.8); LYMPHOCYTES % (AUTO) 15.1 % (21-51); MEAN CORPUSCULAR HEMOGLOBIN 29.4 PG (27.0-31.0); MEAN CORPUSCULAR HGB CONC 31.4 g/dL (33.0-36.5); MEAN CORPUSCULAR VOLUME 93.7 FL (78-98); MEAN PLATELET VOLUME 8.7 FL (7.4-10.4); MONOCYTES # (AUTO) 0.8 X10'3 (0-0.9); MONOCYTES % (AUTO) 11.5 % (2-12); NEUTROPHILS # (AUTO) 5.2 X10'3 (1.8-7.7); NEUTROPHILS % (AUTO) 71.4 % (42-75); PLATELET COUNT 219 X10'3 (140-440); RED BLOOD COUNT 4.64 X10'6 (4.70-6.10); RED CELL DISTRIBUTION WIDTH 19.1 % (11.5-14.5); WHITE BLOOD COUNT 7.2 X10'3 (4.5-11.0)
[2024-02-11 16:05] LABS: ALANINE AMINOTRANSFERASE 44 U/L (12-78); ALBUMIN/GLOBULIN RATIO 0.9 (1.1-1.5); ALKALINE PHOSPHATASE 223 IU/L (46-116); ANION GAP 9 (8-16); ASPARTATE AMINO TRANSFERASE 57 U/L (10-37); BILIRUBIN,TOTAL 2.2 MG/DL (0.1-1.0); BLOOD UREA NITROGEN 21 MG/DL (7-18); BUN/CREATININE RATIO 17.6 (10.0-20.0); CALCIUM 7.8 MG/DL (8.5-10.1); CHLORIDE 106 MMOL/L (99-107); CREATININE 1.19 MG/DL (0.60-1.10); GLUCOSE 93 MG/DL (70-104); POTASSIUM 3.6 MMOL/L (3.5-5.1); SODIUM 140 MMOL/L (135-145); TOTAL CARBON DIOXIDE 24.9 MMOL/L (24-32); TOTAL PROTEIN 6.5 G/DL (6.4-8.2); eCRCL 73 ML/MIN; eGFR 64 ML/MIN
[2024-02-11 16:12] LABS: PRO BRAIN NATRIURETIC PEPTIDE 1911 PG/ML (0-125)
== END 2024-02-11 17:50 | disposition left against medical advice (07) ==
LOC: ER 15:21
DX: R07.89 Other chest pain (principal); R06.02 Shortness of breath; R47.81 Slurred speech; Z53.21 Procedure and treatment not carried out due to patient leaving prior to being seen by health care provider
CPT/HCPCS: 36415; 71045; 80053; 83880; 84484; 85025; 93005

== ENCOUNTER 2024-06-15 14:33 | Emergency (ER) | payer MEDICAID ==
[~2024-06-15] VITALS: Ht 177.8 cm; Wt 74.0 kg
[2024-06-15 14:46] VITALS: BP 131/88; PULSE 110; RESP 18; TEMP 97.8; O2SAT 97
[2024-06-15] MEDS: ketorolac trometh 15mg/ml vial 15 MG/ML ML IM ONE (16:30)
[2024-06-15] MEDS ORDERED: LIDOcaine 1% W/epiNEPHrine 1:100,000 20ml vial IJ ONE (16:30)
[2024-06-15] MEDS ORDERED: IBUP-1984 PO (16:46)
== END 2024-06-15 17:12 | disposition home or self-care (01) ==
LOC: ER 14:33
DX: M70.22 Olecranon bursitis, left elbow (principal); I10 Essential (primary) hypertension; F10.90 Alcohol use, unspecified, uncomplicated; Z88.0 Allergy status to penicillin; Z88.1 Allergy status to other antibiotic agents; Z79.82 Long term (current) use of aspirin; Z79.1 Long term (current) use of non-steroidal anti-inflammatories (NSAID); Z79.899 Other long term (current) drug therapy; Z98.890 Other specified postprocedural states; Y90.9 Presence of alcohol in blood, level not specified
CPT/HCPCS: 96372; 99283; J1885; A4565